=== PATIENT | female | born 1945 | race Caucasian/White ===

== ENCOUNTER → 2017-03-10 | Outpatient (CLI) | payer MEDICARE, BC ==
[~2017-03-10] MED LIST: BACL10TA PO; FLUT9.9S NS; LEVE500T56 PO; PARO25TA9 PO; SIMV20TA PO; WARF4TAB7 PO
--- NOTE | 2017-03-10 15:37 | KCIC ---
MR of the left shoulder HISTORY: Left acromion fracture. Patient fell and landed on left side one week ago. TECHNIQUE: Routine multiplanar sequences are obtained. FINDINGS: Moderate motion degradation. There does appear to be a fracture of the outer clavicle extending to the acromioclavicular joint. There also appears to a fracture of the acromion process. Fracture also identified at the base of the coracoid process without gross displacement. No evidence of acromioclavicular joint separation. Diffuse thinning of the supraspinatus and infraspinatus tendons compatible with broad deep undersurface tearing, up to 90 percent across. Partial subscapularis tendon tear. Moderate muscle volume loss and fatty replacement of the rotator cuff. No significant subdeltoid bursal fluid. Small glenohumeral joint effusion. Moderate glenohumeral joint chondromalacia. No advanced subchondral cystic change or edema. Small osteophytes. The biceps tendon is poorly visualized proximally. Mild intramuscular supraspinatus and infraspinatus edema compatible with an acute strain. IMPRESSION: 1. Nondisplaced posttraumatic fractures of the outer clavicle, acromion and coracoid process. 2. Deep partial thickness undersurface tearing of the supraspinatus and distended. Partial subscapularis tendon tear. 3. Poorly visualized proximal biceps tendon. Electronically signed by: Tye Rosales MD (03/10/2017 3:34 PM)
== END | disposition home or self-care (01) ==
LOC: KCIC MRI 14:32
PROVIDERS: ATTEND Family Medicine
DX: S42.122A Displaced fracture of acromial process, left shoulder, initial encounter for closed fracture (principal); X58.XXXA Exposure to other specified factors, initial encounter; Y93.89 Activity, other specified; Y92.89 Other specified places as the place of occurrence of the external cause; Y99.8 Other external cause status
CPT/HCPCS: 73221

== ENCOUNTER → 2018-01-24 | Outpatient (CLI) | payer MEDICARE, BC ==
[2018-01-24] MEDS: GADOBUTROL 10 MMOL/10 ML VIAL IV (15:30)
== END | disposition home or self-care (01) ==
LOC: KCIC MRI 13:53
DX: K76.89 Other specified diseases of liver (principal); N28.1 Cyst of kidney, acquired; Z79.01 Long term (current) use of anticoagulants
CPT/HCPCS: 74183; A9585